=== PATIENT | female | born 1950 | race African-American/Black ===

== ENCOUNTER 2018-01-30 08:53 | Outpatient (CLI) | payer MEDICARE | END 2018-01-30 08:54 | disposition home or self-care (01) | LOC: BICMAMMO 08:53 | PROVIDERS: ATTEND Internal Medicine | DX: Z12.31 Encounter for screening mammogram for malignant neoplasm of breast (principal); Z85.3 Personal history of malignant neoplasm of breast | CPT/HCPCS: 77063; 77067 ==

== ENCOUNTER 2020-04-28 09:21 | Outpatient (CLI) | payer MEDICARE ==
--- NOTE | 2020-04-28 09:39 | RAD ---
THREE VIEWS CERVICAL SPINE: HISTORY: Pain. COMPARISON: None. FINDINGS: Predental space is normal. No prevertebral soft tissue swelling. Cervical spine vertebral body heights are maintained. No fracture. Mild loss of disc space height and osteophyte formation at C5-C6. Minimal osteophyte formation at C6-C7 and C4-C5. Nonspecific calcification along the anterior aspect of the C4-C5 disc space. On the AP projection, mild facet arthropathy. No malalignment. The open-mouth projection, lateral masses of C1 and C2 articulate probably. Odontoid process is obscu red. IMPRESSION: Multilevel degenerative changes of the cervical spine as described above. Transcribed Date/Time: 04/28/2020 10:46 AM
--- NOTE | 2020-04-28 09:42 | RAD ---
Left knee 4 views HISTORY: Left knee pain. FINDINGS: Mild joint space narrowing. Minimal osteophytosis. No acute fracture, dislocation, or fluid distention of the suprapatellar bursa. IMPRESSION : Mild osteoarthritic changes.
== END 2020-04-28 09:22 | disposition home or self-care (01) ==
LOC: RAD-FRANK 09:21
PROVIDERS: ATTEND Nurse Practitioner Family
DX: M54.2 Cervicalgia (principal); M25.562 Pain in left knee; M17.12 Unilateral primary osteoarthritis, left knee; M47.812 Spondylosis without myelopathy or radiculopathy, cervical region
CPT/HCPCS: 72040

== ENCOUNTER 2020-12-29 21:17 | Observation (INO) | payer MEDICARE ==
[~2020-12-29 21:17] MED LIST: Iopamidol-370 76% 500 ML 1 ML ONE
[2020-12-29] MEDS ORDERED: Nitroglycerin 2% Ointment 1 INCH/1 GM Packet ONE (21:35)
--- NOTE | 2020-12-29 21:40 | RAD ---
PORTABLE CHEST: 12/29/20 PROVIDED CLINICAL HISTORY: Chest pain. FINDINGS: Cardiac and mediastinal silhouette is within normal limits. No focal consolidation, pleural fluid, or pneumothorax apparent. IMPRESSION: No evidence for an acute cardiopulmonary process. POS: MACHO
[2020-12-29 21:53] LABS: #Lymphocytes 2.4 thou/uL (1.20-3.40); #Monocytes 0.8 thou/uL (0.11-0.59); #Neutrophils 7.8 thou/uL (1.40-6.50); %Basophils 0.1 % (0.0-1.0); %Eosinophils 0.2 % (0.0-10.0); %Lymphocytes 21.3 % (21.0-51.0); %Monocytes 7.4 % (0.0-10.0); Hemoglobin 12.2 g/dL (12.0-16.0); Mean Corpuscular Hemoglobin 31.8 pg (27.0-31.0); Mean Corpuscular Volume 93.7 fL (78.0-98.0); Platelet Count 331 thou/uL (130-400); RBC Distribution Width 12.9 % (11.5-14.5); Red Blood Cell (RBC) Count 3.84 mill/uL (4.20-5.40)
[2020-12-29 22:03] LABS: ALT (SGPT) 24 U/L (8-55); AST (SGOT) 24 U/L (5-34); Albumin 4.2 g/dL (3.4-4.8); Alkaline Phosphatase 82 U/L (40-110); Anion Gap 16 mmol/L (10-20); BUN (Urea Nitrogen) 22 mg/dL (9.8-20.1); Bilirubin, Total 0.6 mg/dL (0.2-1.2); Calc. Creatinine Clearance 0 mL/min (70-130); Calcium 9.2 mg/dL (7.8-10.44); Carbon Dioxide 23 mmol/L (23-31); Chloride 105 mmol/L (98-107); Globulin 3.4 g/dL (2.4-3.5); Glucose 147 mg/dL (83-110); Lipase 45 U/L (8-78); Magnesium 2.2 mg/dL (1.6-2.6); Potassium 3.6 mmol/L (3.5-5.1); Protein, Total 7.6 g/dL (5.8-8.1); Sodium 140 mmol/L (136-145)
[2020-12-29 23:07] LABS: Bilirubin Negative (Negative); Blood, Urine Negative (Negative); Clarity Clear (Clear); Glucose, Urine (Dipstick) Normal (Negative); Ketone, Urine Negative (Negative); Leukocyte Negative Leu/uL (Negative); Nitrite Negative (Negative); Protein, Urine (Dipstick) Negative (Neg-Trace); Specific Gravity, Urine 1.013 (1.002-1.036); Urobilinogen Normal mg/dL (Less than 2)
[2020-12-30] MEDS ORDERED: Acetaminophen 650 MG Suppository PR PRN (01:47)
[2020-12-30] MEDS ORDERED: Acetaminophen 325 MG TAB PO PRN (01:47)
--- NOTE | 2020-12-30 02:03 | PDOC.HHP ---
Hospitalist HPI History of Present Illness: ADMISSION DATE: 12/30/20 TIME OF ASSESSMENT: 0130 PRIMARY CARE PHYSICIAN: Satnam sanders CHIEF COMPLAINT: Chest pain HPI: This is a 70-year-old woman who presents to the emergency department with complaints of chest pain that started Saturday evening at approximately 10 PM while she was laying in bed. She states that a was in the center of her chest radiating to the left side of her chest and lasted approximately 10 to 15 minutes. She states it was aching and rates it a 6 out of 10 in severity. The pain recurred again yesterday intermittently throughout the day and became more intense around 6 PM. This prompted her to seek medical attention. She states she did take Tums which helped alleviate her discomfort but not fully. She was given nitroglycerin and aspirin by EMS which then did ease her pain completely. Reports having similar pains in the past for which she saw Dr. Johnson and underwent a stress test as well as an echo in May 2020. The patient states that that time when she would get intermittent chest pain it would last a couple of minutes. The patient does not recall the results of her stress test but states Dr. Johnson gave her the option to have a heart catheterization done or to manage her symptoms conservatively by continuing the medication she was on including a baby aspirin, antihypertensives and her statin. ROS: She denies having any recent cough or hemoptysis. Does report having difficulty with her breathing on exertion which has been going on for several months. She states she tends to get winded easily with activity such as gardening and therefore is not as active as she wishes she could be. Denies having any lightheadedness or dizziness. No nausea or vomiting. Denies experiencing any diaphoresis. No abdominal pain or cramping. No recent fevers, chills or sweats. All other review of systems are negative. ED COURSE: In the emergency department the patient had an EKG done which demonstrated sinus tachycardia with a heart rate of 107, QTc 43. Chest x-ray showed no evidence for an acute cardiopulmonary process Labs demonstrated a white cell count of 11, hemoglobin 12.2, platelets 331, neutrophils 71%. D-dimer elevated at 3.25. Troponin negative. Magnesium 2.2, lipase 45, potassium 3.6, BUN 22, creatinine 0.98, GFR 68, LFTs unremarkable and BNP 45.1. She apparently had a low-grade temperature of 99.1 in the emergency department therefore underwent a urinalysis which was unremarkable. Due to hypertensive urgency with a blood pressure of 192/81 she was given a dose of labetalol 10 mg IV. Also given Nitro-Bid 1 inch. Allergies/Adverse Reactions: Allergy/AdvReac Type Severity Reaction Status Date / Time No Known Allergies Allergy Verified 08/05/13 10:44 Home Medications: Medication Instructions Recorded Confirmed Type Atorvastatin Calcium [Lipitor] 40 mg PO DAILY 08/05/13 08/05/13 History Benazepril HCl 12.5 mg PO DAILY 08/05/13 08/05/13 History Cholecalciferol (Vitamin D3) 1,000 unit PO DAILY 08/05/13 08/05/13 History [Vitamin D3] Glucosamine/D3/Boswellia Lian 1 tablet PO DAILY 08/05/13 08/05/13 History [Osteo Bi-Flex One Per Day] Aspirin [Ecotrin Low Strength] 81 mg PO DAILY 01/11/14 01/11/14 History Ondansetron [Zofran ODT] 4 mg PO Q8HR PRN #3 tab 01/11/14 Rx Past History: PAST MEDICAL HISTORY: 1. Hypertension 2. Hyperlipidemia 3. CAD PAST SURGICAL HISTORY: None SOCIAL HISTORY: The patient is fully independent at baseline. Denies any tobacco use alcohol consumption or drug use FAMILY HISTORY: Noncontributory Hospitalist Exam Vitals: Temp 99.1, BP 157/69, HR 97, RR 20, O2 sat 90% on room air General Appearance: NAD, awake alert Eye: PERRL, anicteric sclera ENT: normocephalic atraumatic, no oropharyngeal lesions Neck: supple, no lymphadenopathy Heart: RRR, normal peripheral pulses Respiratory: CTAB, no wheezes, no rales, no ronchi, normal chest expansion Gastrointestinal: soft, non-tender, non-distended, normal bowel sounds Extremities: no edema Skin: normal turgor, no lesions, no rashes Neurological: cranial nerve grossly intact, normal sensation to touch Musculoskeletal: normal tone, normal strength, no muscle wasting Psychiatric: normal affect, normal behavior, A&O x 3 Hospitalist Results Result Diagrams: 12/29/20 21:30 12/29/20 21:30 Lab results: Laboratory Last Values WBC 11.0 thou/uL (4.8-10.8) H 12/29/20 21: RBC 3.84 mill/uL (4.20-5.40) L 12/29/20: Hgb 12.2 g/dL (12.0-16.0) 12/29/20: Hct 36.0 % (36.0-47.0) 12/29/20: MCV 93.7 fL (78.0-98.0) 12/29/20: MCH 31.8 pg (27.0-31.0) H 12/29/20: MCHC 34.0 g/dL (32.0-36.0) 12/29/20: RDW 12.9 % (11.5-14.5) 12/29/20: Plt Count 331 thou/uL (130-400) 12/29/20: MPV 7.0 fL (7.4-10.4) L 12/29/20: Neutrophils % 71.0 % (42.0-75.0) 12/29/20: Lymphocytes % 21.3 % (21.0-51.0) 12/29/20: Monocytes % 7.4 % (0.0-10.0) 12/29/20: Eosinophils % 0.2 % (0.0-10.0) 12/29/20: Basophils % 0.1 % (0.0-1.0) 12/29/20: Neutrophils # 7.8 thou/uL (1.40-6.50) H 12/29/20: Lymphocytes # 2.4 thou/uL (1.20-3.40) 12/29/20: Monocytes # 0.8 thou/uL (0.11-0.59) H 12/29/20: Eosinophils # 0.0 thou/uL (0.0-0.7) 12/29/20: Basophils # 0.0 thou/uL (0.0-0.2) 12/29/20: D-Dimer 3.25 *mcg/mL (0.27-0.43) H 02/11/21 21:30 Sodium 140 mmol/L (136-145) 12/29/20 21:30 Potassium 3.6 mmol/L (3.5-5.1) 12/29/20 21: Chloride 105 mmol/L (98-107) 12/29/20 21: Carbon Dioxide 23 mmol/L (23-31) 12/29/20 21:30 Anion Gap 16 mmol/L (10-20) 12/29/20:30 BUN 22 mg/dL (9.8-20.1) H 12/29/20 21:30 Creatinine 0.98 mg/dL (0.6-1.1) 12/29/20 21:30 Estimated GFR (MDRD) 68 12/29/20 21: Glucose 147 mg/dL (83-110) H 12/29/20: Calcium 9.2 mg/dL (7.8-10.44) 12/29/20: Magnesium 2.2 mg/dL (1.6-2.6) 12/29/20: Total Bilirubin 0.6 mg/dL (0.2-1.2) 12/29/20: AST 24 U/L (5-34) 12/29/20: ALT 24 U/L (8-55) 12/29/20: Alkaline Phosphatase 82 U/L (40-110) 12/29/20: Troponin I 0.014 ng/mL (< 0.028) 12/29/20: B-Natriuretic Peptide 45.1 pg/mL (0-100) 12/29/20: Serum Total Protein 7.6 g/dL (5.8-8.1) 12/29/20: Albumin 4.2 g/dL (3.4-4.8) 12/29/20: Globulin 3.4 g/dL (2.4-3.5) 12/29/20: Albumin/Globulin Ratio 1.2 g/dL (1.2-2.2) 12/29/20: Lipase 45 U/L (8-78) 12/29/20: Urine Color Colorless (Yellow) 12/29/20: Urine Clarity Clear (Clear) 02/11/21 22:55 Urine pH 7.0 (5.0-9.0) 12/29/20 22:55 Ur Specific [place] 1.013 (1.002-1.036) 12/29/20 22:55 Urine Protein Negative mg/dL (Neg-Trace) 12/29/20 22:55 Urine Glucose (UA) Normal mg/dL (Negative) 12/29/20 22:55 Urine Ketones Negative mg/dL (Negative) 12/29/20 22:55 Urine Blood Negative (Negative) 12/29/20 22:55 Urine Nitrite Negative (Negative) 12/29/20 22:55 Urine Bilirubin Negative (Negative) 12/29/20 22:55 Urine Urobilinogen Normal mg/dL (Less than 2) 12/29/20 22:55 Ur Leukocyte Esterase Negative Aryan/uL (Negative) 12/29/20 22:55 CT scan - chest Status: pending Hospitalist H&P A/P (1) Chest pain Code(s): R07.9 - CHEST PAIN, UNSPECIFIED Status: Acute (2) Shortness of breath on exertion Code(s): R06.02 - SHORTNESS OF BREATH Status: Acute (3) Hypertension Code(s): I10 - ESSENTIAL (PRIMARY) HYPERTENSION Status: Chronic (4) Hyperlipidemia Code(s): E78.5 - HYPERLIPIDEMIA, UNSPECIFIED Status: Chronic Plan: Cardiac monitoring Trend troponins Monitor BP D-Dimer elevated, CTA done, awaiting results Recent stress test and Echo by Dr. Johnson <1 yr ago Cardiology consult placed Lipid panel with AM labs Continue statin and Aspirin GI Prophylaxis with Famotidine CODE STATUS FULL Resume home medications as appropriate once verified COVID testing-admission screening Case discussed with Dr. Guerrero who agrees with plan as above
[2020-12-30 02:05] LABS: Troponin I 0.025 ng/mL (< 0.028)
[2020-12-30 04:09] LABS: #Lymphocytes 2.2 thou/uL (1.20-3.40); #Monocytes 0.9 thou/uL (0.11-0.59); #Neutrophils 5.1 thou/uL (1.40-6.50); %Basophils 0.2 % (0.0-1.0); %Eosinophils 0.2 % (0.0-10.0); %Lymphocytes 26.6 % (21.0-51.0); Hemoglobin 11.5 g/dL (12.0-16.0); Mean Corpuscular HGB CONC 33.5 g/dL (32.0-36.0); Mean Corpuscular Hemoglobin 31.3 pg (27.0-31.0); Mean Corpuscular Volume 93.4 fL (78.0-98.0); Mean Platelet Volume 6.9 fL (7.4-10.4); Platelet Count 318 thou/uL (130-400); Red Blood Cell (RBC) Count 3.69 mill/uL (4.20-5.40); White Blood Cell (WBC) Count 8.2 thou/uL (4.8-10.8)
[2020-12-30 04:27] LABS: Anion Gap 13 mmol/L (10-20); BUN (Urea Nitrogen) 19 mg/dL (9.8-20.1); Calc. Creatinine Clearance 0 mL/min (70-130); Calcium 9.3 mg/dL (7.8-10.44); Carbon Dioxide 24 mmol/L (23-31); Cardiac Risk 2.5 (Less than 4.5); Chloride 109 mmol/L (98-107); Cholesterol 143 mg/dl (< 200 Desired); Glucose 118 mg/dL (83-110); HDL Cholesterol 58 mg/dL (>60 Neg Risk); LDL Cholesterol, Calculated 79 mg/dL; Sodium 142 mmol/L (136-145); Triglycerides 30 mg/dL (Less than 150)
[2020-12-30 04:32] LABS: Troponin I 0.034 ng/mL (< 0.028)
--- NOTE | 2020-12-30 07:45 | CT ---
PRELIMINARY REPORT/[facility]/EMERGENCY AFTER HOURS PROCEDURE EXAM: CTA Chest with Intravenous Contrast CLINICAL HISTORY: 70-year-old female presents the emergency department for complaint of chest pain. Patient stated it s tarted last night spontaneously and was mild. She stated that this resolved with time. She states that all this morning she was feeling well without any complaints until tonight around 6 PM the chest pain restarted. She described it as substernal and radiating to her left side and down her left arm TECHNIQUE: Axial CTA images of the chest with intravenous contrast. Three-dimensional MIP/volume rendered reform ations were performed. CONTRAST: With; ISOVUE COMPARISON: None provided. FINDINGS: PULMONARY ARTERIES There is no intraluminal filling defect suspicious for PE. AORTA No thoracic aortic aneurysm or dissection. LUNGS The lungs are clear. No pulmonary mass. No focal airspace consolidation. PLEURAL SPACES No pleural effusion. No pneumothorax. HEART AND MEDIASTINUM No cardiomegaly. No significant pericardial effusion. BONES No focal osseous abnormality or acute fracture. UPPER ABDOMEN A few nonspecific hepatic parenchymal hypodensities, the largest in the anterolateral periphery of th e posterior segment of the right lobe of the liver measuring 8 mm. Given the patient's left mastectomy, hepatic metastatic disease is a consideration. MISCELLANEOUS: The patient is status post left mastectomy. IMPRESSION: 1. No intraluminal filling defect suspicious for PE. 2. A few nonspecific hepatic parenchymal hypodensities, the largest in the anterolateral periphery of the posterior segment of the right lobe of the liver measuring 8 mm. Given the patient's left mastectomy, hepatic metastatic disease is a consideration. ELECTRONICALLY SIGNED BY: Jermaine Pedroza MD Dec 30, 2020 12:52:41 AM [employer] This report is intended for review by the ordering physician only, in accordance of law. If you recei ve this report in error, please call [facility] at [phone]. FINAL REPORT CTA Angio Chest W WO Con History: Chest pain Comparison: Chest radiograph same day Findings: CT angiogram chest performed after the intravenous administration of contrast. 3-D renderin g provided. Impression: Findings and impression are concordant with the preliminary report. Hepatic hypodensities are likely cysts. Follow up abdominal ultrasound can be performed. Transcribed Date/Time: 12/30/2020 8:04 AM
[2020-12-30] MEDS ORDERED: Famotidine 20 MG TAB PO SCH (09:00)
[2020-12-30] MEDS ORDERED: Aspirin 325 mg Enteric Coated Tablet PO SCH (09:00)
[2020-12-30] MEDS ORDERED: Calcium Carbonate 500 MG ChewTAB PO PRN (09:14)
[2020-12-30] MEDS ORDERED: Ondansetron ODT 4 MG TAB PO PRN (09:14)
[2020-12-30] MEDS ORDERED: HYDROcodone/Acetaminophen 5/325 mg Tablet PO PRN (09:14)
[2020-12-30] MEDS ORDERED: Bisacodyl 5 MG TAB PO PRN (09:14)
[2020-12-30] MEDS ORDERED: Cepastat Lozenges 1 LOZ PO PRN (09:14)
[2020-12-30] MEDS ORDERED: Loratadine 10 MG TAB PO PRN (09:14)
[2020-12-30] MEDS ORDERED: Sodium Chloride 0.65% Nasal 44 ML BOT EA NARE PRN (09:14)
[2020-12-30] MEDS ORDERED: hydrALAZINE 20 MG/ML VIAL SLOW IVP PRN (09:14)
[2020-12-30] MEDS ORDERED: Ondansetron PF 4 MG/2 ML Vial IVP PRN (09:14)
[2020-12-30] MEDS ORDERED: GUAIFENESIN SF SOLN 200 MG/10 ML UDCUP PO PRN (09:14)
[2020-12-30] MEDS ORDERED: Zolpidem Tartrate 5 MG TAB PO PRN (09:14)
[2020-12-30] MEDS ORDERED: Senokot S 8.6-50 MG TAB PO PRN (09:14)
[2020-12-30] MEDS ORDERED: Loperamide HCl 2 MG CAP PO PRN (09:14)
[2020-12-30] MEDS ORDERED: Lisinopril 10 MG TAB PO SCH (09:30)
[2020-12-30 12:50] LABS: SARS-CoV-2 PCR by NAA Not Detected (NotDetected)
--- NOTE | 2020-12-30 12:56 | PDOC.HOSPP ---
- Subjective Encounter Date: 12/30/20 Encounter Time: 11:00 Subjective: Patient seen and examined. No new complaints. No overnight events - Objective Vital Signs & Weight: Vital Signs (12 hours) Temp Pulse Resp BP BP Pulse Ox 12/30/20 09:40 185/75 H 12/30/20 09:14 98.7 F 94 16 184/75 H 98 12/30/20 05:15 98.2 F 98 18 172/72 H 99 12/30/20 01:47 98.4 F 88 14 168/71 H 99 Weight Weight 5.397 oz I&O: 12/29/20 12/30/20 12/31/20 06:59 06:59 06:59 Intake Total 0 Balance 0 Result Diagrams: 12/30/20 03:52 12/30/20 03:52 Radiology Reviewed by me: Yes EKG Reviewed by me: Yes Hospitalist ROS - Review of Systems ENT: denies: ear pain, ear discharge, nose pain, nose discharge, nose congestion, mouth pain, mouth swelling, throat pain, throat swelling, other Respiratory: denies: cough, dry, shortness of breath, hemoptysis, SOB with excertion, pleuritic pain, sputum, wheezing, other Cardiovascular: denies: chest pain, palpitations, orthopnea, paroxysmal noc. dyspnea, edema, light headedness, other Gastrointestinal: denies: nausea, vomiting, abdominal pain, diarrhea, constipation, melena, hematochezia, other Genitourinary: denies: dysuria, frequency, incontinence, hematuria, retention, other Musculoskeletal: denies: neck pain, shoulder pain, arm pain, back pain, hand pain, leg pain, foot pain, other - Medication Medications: Active Medications Generic Name Dose Route Start Last Admin Trade Name Freq PRN Reason Stop Dose Admin Aspirin 325 mg 12/30/20 09:00 12/30/20 09:40 Aspirin 325 Mg Enteric Coated Tablet PO 325 mg DAILY [facility] Administration Famotidine 20 mg 12/30/20 09:00 12/30/20 09:40 Famotidine 20 Mg Tab PO 20 mg BID [facility] Administration Hospitalist Exam Vitals: Vital Signs (12 hours) Temp Pulse Resp BP BP Pulse Ox 12/30/20 09:40 185/75 H 12/30/20 09:14 98.7 F 94 16 184/75 H 98 12/30/20 05:15 98.2 F 98 18 172/72 H 99 12/30/20 01:47 98.4 F 88 14 168/71 H 99 Weight Weight 5.397 oz General Appearance: NAD, awake alert Eye: PERRL, anicteric sclera ENT: normocephalic atraumatic, no oropharyngeal lesions Neck: supple, symmetric, no JVD, no thyromegaly Heart: RRR, no murmur, no gallops, no rubs Respiratory: CTAB, no wheezes, no rales, no ronchi Gastrointestinal: soft, non-tender, non-distended, normal bowel sounds Extremities: no cyanosis, no clubbing, no edema Skin: normal turgor, no lesions Neurological: no focal deficits Musculoskeletal: normal tone, normal strength Psychiatric: normal affect, normal behavior, A&O x 3 Hosp A/P (1) Chest pain Code(s): R07.9 - CHEST PAIN, UNSPECIFIED Status: Acute (2) Shortness of breath on exertion Code(s): R06.02 - SHORTNESS OF BREATH Status: Acute (3) Hyperlipidemia Code(s): E78.5 - HYPERLIPIDEMIA, UNSPECIFIED Status: Resolved (4) Hypertension Code(s): I10 - ESSENTIAL (PRIMARY) HYPERTENSION Status: Chronic - Plan old records reviewed/req Patient already had recently stress test and echocardiography as an outpatient basis, Cardiology has been consulted Further investigation like cardiac catheterization will defer to cardiology Patient is n.p.o. I have started lisinopril 10 mg p.o. daily for blood pressure.
--- NOTE | 2020-12-30 12:58 | PDOC.DS.DS ---
Provider Date of Admission: 12/30/20 00:54 Admitting Provider: Gabriel Guerrero MD Consultations: Cardiology Primary Care Physician: Kaden Navarrete MD Course Hospital Course: 70-year-old woman who presents to the emergency department with complaints of chest pain that started Saturday evening at approximately 10 PM while she was laying in bed. She states that a was in the center of her chest radiating to the left side of her chest and lasted approximately 10 to 15 minutes. She states it was aching and rates it a 6 out of 10 in severity. The pain recurred again yesterday intermittently throughout the day and became more intense around 6 PM. This prompted her to seek medical attention. She states she did take Tums which helped alleviate her discomfort but not fully. She was given nitroglycerin and aspirin by EMS which then did ease her pain completely. Reports having similar pains in the past for which she saw Dr. Johnson and underwent a stress test as well as an echo in May 2020. The patient states that that time when she would get intermittent chest pain it would last a couple of minutes. The patient does not recall the results of her stress test but states Dr. Johnson gave her the option to have a heart catheterization done or to manage her symptoms conservatively by continuing the medication she was on including a baby aspirin, antihypertensives and her statin. ROS: She denies having any recent cough or hemoptysis. Does report having difficulty with her breathing on exertion which has been going on for several months. She states she tends to get winded easily with activity such as gardening and therefore is not as active as she wishes she could be. Denies having any lightheadedness or dizziness. No nausea or vomiting. Denies experiencing any diaphoresis. No abdominal pain or cramping. No recent fevers, chills or sweats. All other review of systems are negative. ED COURSE: In the emergency department the patient had an EKG done which demonstrated sinus tachycardia with a heart rate of 107, QTc 43. Chest x-ray showed no evidence for an acute cardiopulmonary process Labs demonstrated a white cell count of 11, hemoglobin 12.2, platelets 331, neutrophils 71%. D-dimer elevated at 3.25. Troponin negative. Magnesium 2.2, lipase 45, potassium 3.6, BUN 22, creatinine 0.98, GFR 68, LFTs unremarkable and BNP 45.1. She apparently had a low-grade temperature of 99.1 in the emergency department therefore underwent a urinalysis which was unremarkable. Due to hypertensive urgency with a blood pressure of 192/81 she was given a dose of labetalol 10 mg IV. Also given Nitro-Bid 1 inch. Patient had elevated D-dimer that is why CT angio was done which was negative for pulmonary embolism. Patient had already outpatient basis stress test and echocardiography so we consulted cardiology, cardiology to decide about stress test, we started lisinopril for hypertension. Resuscitation Status: 12/30/20 01:47 Resuscitation Status Routine Co-Sign Provider: Resuscitation Status: FULL: Full Resuscitation Lab Results: 12/30/20 03:52 12/30/20 03:52 Abnormal Lab Results - Last 48 hrs 12/29/20 21:30: BUN 22 H 12/29/20 21:30: WBC 11.0 H, RBC 3.84 L, MCH 31.8 H, MPV 7.0 L, Neutrophils # 7.8 H, Monocytes # 0.8 H 12/29/20 21:30: D-Dimer 3.25 H 12/30/20 03:52: Troponin I 0.034 H 12/30/20 03:52: Chloride 109 H 12/30/20 03:52: RBC 3.69 L, Hgb 11.5 L, Hct 34.5 L, MCH 31.3 H, MPV 6.9 L, Monocytes % 11.0 H, Monocytes # 0.9 H Vitals: Vital Signs (12 hours) Temp Pulse Resp BP BP Pulse Ox 12/30/20 09:40 185/75 H 12/30/20 09:14 98.7 F 94 16 184/75 H 98 12/30/20 05:15 98.2 F 98 18 172/72 H 99 12/30/20 01:47 98.4 F 88 14 168/71 H 99 Weight Weight 5.397 oz Physical Exam: The patient was seen and examined on the day of discharge. General Appearance: NAD, awake alert Eye: PERRL, anicteric sclera ENT: normocephalic atraumatic, no oropharyngeal lesions Neck: supple, symmetric, no JVD, no thyromegaly Respiratory: CTAB, no wheezes, no rales, no ronchi Cardiovascular: RRR, no murmur, no gallops, no rubs Gastrointestinal: soft, non-tender, non-distended, normal bowel sounds Extremities: no cyanosis, no clubbing, no edema Skin: normal turgor, no lesions Neurological: no focal deficits Musculoskeletal: normal tone, normal strength, no muscle wasting PSYCH: normal affect, normal behavior, A&O x 3 Problem (1) Chest pain Code(s): R07.9 - CHEST PAIN, UNSPECIFIED Status: Acute (2) Shortness of breath on exertion Code(s): R06.02 - SHORTNESS OF BREATH Status: Acute (3) Hyperlipidemia Code(s): E78.5 - HYPERLIPIDEMIA, UNSPECIFIED Status: Resolved (4) Hypertension Code(s): I10 - ESSENTIAL (PRIMARY) HYPERTENSION Status: Chronic Plan Home Medications: Medication Instructions Recorded Confirmed Type Atorvastatin Calcium [Lipitor] 40 mg PO DAILY 08/05/13 08/05/13 History Benazepril HCl 12.5 mg PO DAILY 08/05/13 08/05/13 History Cholecalciferol (Vitamin D3) 1,000 unit PO DAILY 08/05/13 08/05/13 History [Vitamin D3] Glucosamine/D3/Boswellia Lian 1 tablet PO DAILY 08/05/13 08/05/13 History [Osteo Bi-Flex One Per Day] Aspirin [Ecotrin Low Strength] 81 mg PO DAILY 01/11/14 01/11/14 History Ondansetron [Zofran ODT] 4 mg PO Q8HR PRN #3 tab 01/11/14 Rx Allergies: No Known Allergies Allergy (Verified 12/30/20 04:13) Activity:: Activity as Tolerated Nourishment:: Heart Healthy Diet Therapies:: Not Applicable Equipment/Supplies:: Not Applicable IV Therapy:: Not Applicable Referrals: Kaden Navarrete MD [Primary Care Provider] - Disposition: HOME Quality CORE MEASURES:: N/A
--- NOTE | 2020-12-30 13:34 | CON ---
DATE OF CONSULTATION: 12/30/2020 INDICATION FOR CONSULTATION: This is a 70-year-old female with chest pain. 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 HISTORY OF PRESENT ILLNESS: This very pleasant 70-year-old female, was seen by Dr. Johnson back in July and underwent stress testing as well as an echocardiogram. Ejection fraction was normal. She did have evidence of possible inferior and apical reversible ischemia. She was given the option of proceeding with cardiac catheterization versus medical management and medical management was opted. She has then noticed in the last several days starting on Saturday evening when she was lying down, she had some chest pain which was on the right side of her chest radiated to the left side and then down the left arm. The pain resolved and she was sitting up and no discomfort. She was okay on , but then again night, she had more chest discomfort when she was lying down and she also felt like her heart was racing a little bit. She presented to the emergency room. First two sets of enzymes are negative. The third set is still indeterminate, but it still is like 0.034 I believe. Otherwise, her laboratory data unremarkable. Her LDL is 79 and remaining of her laboratory data is relatively unremarkable for any acute events. At this time, she is pain free. She is sitting in the room and she is very pleasant. Answering all questions. PAST MEDICAL HISTORY: Significant for some hypertension as well as dyslipidemia. SOCIAL HISTORY: There is no history of alcohol or tobacco abuse. She lives with her . She had 4 children, one in automobile accident, the other three have no history of coronary artery disease. FAMILY HISTORY: Noncontributory. ALLERGIES: NONE. MEDICATIONS: Prior to admission included, 1. Benazepril HCL 12.5 mg a day. 2. Lipitor 40 mg a day. 3. Vitamin D3. 4. Osteo Bi-Flex once a day. 5. Aspirin 81 mg a day. 6. Zofran as needed. REVIEW OF SYSTEMS: A 12-point review of systems unremarkable except what is noted in the history of present illness. PHYSICAL EXAMINATION: GENERAL: Reveals a very pleasant, well-developed, well-nourished female, in no acute distress. VITAL SIGNS: Blood pressure is elevated at 185/75, heart rate is 94 and regular, respiratory rate 16, O2 saturation 98%. She is afebrile. HEENT: Shows the head to be normocephalic and atraumatic. Carotid pulses are present. There were no bruits. There is no JVD. The thyroid did not appear to be enlarged. CHEST: Clear to auscultation without rales, rhonchi, or wheezing. CARDIOVASCULAR: Reveals a regular rate and rhythm. She has normal S1, S2. I cannot hear an S3 nor an S4. No other any significant murmurs, heaves, thrills, bruits, or rubs noted. ABDOMEN: Soft and nontender. Positive bowel sounds are present. EXTREMITIES: Show no clubbing, cyanosis, or edema. Pedal pulses are present. NEUROLOGIC: She is fully intact. She has no gross focal motor deficits. SKIN: Warm and dry. PSYCHOSOCIAL: Appears to be normal. LABORATORY DATA: Shows a WBC of 11, hemoglobin 12.2. She does have a slight elevation of the D-dimer at 3.25, which still indeterminate. Potassium is 3.6, creatinine 0.98. Her BNP was 45. EKG is unremarkable. She has a sinus rhythm with no acute ST-segment changes. IMPRESSION: 1. A 70-year-old female with repeated episodes of chest pain despite a negative stress test in May of 2020, as well as an echo, which showed a normal left ventricular systolic function. Actually, the stress test did show some abnormalities, but she was opted to continue medical management. At this time, we will repeat the stress test to determine whether or not there are any changes. Her pain does appear to be somewhat atypical or more GI in nature since she only has the pain when she is lying down. We will repeat the stress test. If she has any significant other changes, I would suggest cardiac catheterization. Otherwise if everything remains stable, she could be discharged home later today if the blood pressure is under control. 2. Hypertension. Her blood pressure is obviously not under control at this time. She was given her medications, however, in the hope of the blood pressure will improve. If not, we will need to readjust her blood pressure medications. 3. Dyslipidemia. Her cholesterol is under good control. I would continue her statins at this time. Job ID: [id number] MTDD
[2020-12-30] MEDS ORDERED: cloNIDine 0.1 MG TAB PO SCH (14:30)
--- NOTE | 2020-12-30 16:42 | NM ---
NM Cardiac Stress W EF WF History: Hypertension and dyslipidemia Comparison: CT angiogram chest same day Findings: Exam was performed using stress only. The patient was administered 27.4 mCi technetium 99m sestamibi intravenously. Normal left ventricular uptake of radiotracer. Normal wall motion. Calculated ejection fraction is 83 %. No abnormal decreased uptake to suggest scar or ischemia. Impression: Normal single day nuclear medicine stress test.
[2020-12-30 17:27] VITALS: BP 152/59; TEMP 97.6
[2020-12-30] MEDS ORDERED: Regadenoson 0.4 MG/5 ML SYRINGE ONE (17:38)
[2020-12-30] MEDS ORDERED: Atorvastatin Calcium 40 MG TAB PO SCH (21:00)
[2020-12-31] MEDS ORDERED: Lisinopril 10 MG TAB PO SCH (09:00)
[2020-12-31] MEDS ORDERED: BENAZEPRIL HCL PO SCH (09:00)
[2020-12-31] MEDS ORDERED: Cholecalciferol 1,000 UNITS (25 MCG) TAB PO SCH (09:00)
--- NOTE | 2021-01-04 15:21 | EKG ---
Test Reason : C/P Blood Pressure : / mmHG Vent. Rate : 109 BPM Atrial Rate : 109 BPM P-R Int : 164 ms QRS Dur : 088 ms QT Int : 374 ms P-R-T Axes : 054 032 043 degrees QTc Int : 503 ms Sinus tachycardia Nonspecific ST abnormality Abnormal ECG When compared with ECG of 29-DEC-2020 21:29, (Unconfirmed) Premature ventricular complexes are no longer Present Confirmed by KEEGAN NORMAN ([id number]) on 01/04/2021 3:21:14 PM Referred By: MATEO Confirmed By:KEEGAN NORMAN
--- NOTE | 2021-01-07 15:51 | EKG ---
Test Reason : Blood Pressure : / mmHG Vent. Rate : 107 BPM Atrial Rate : 107 BPM P-R Int : 170 ms QRS Dur : 090 ms QT Int : 362 ms P-R-T Axes : 051 -01 034 degrees QTc Int : 483 ms Sinus tachycardia with occasional Premature ventricular complexes Possible Left atrial enlargement Borderline ECG Confirmed by RAMAN REBOLLAR ([id number]), society editor PRASANNA JUDGE ([id number]) on 01/07/2021 3:51:22 PM Referred By: Confirmed By:RAMAN REBOLLAR
== END 2020-12-30 18:18 | disposition home or self-care (01) ==
LOC: ERS 21:17 → 3SE 12-30 00:54
PROVIDERS: ADMIT Internal Medicine; ATTEND Internal Medicine
DX: R07.89 Other chest pain (principal); R06.02 Shortness of breath; I16.0 Hypertensive urgency; I10 Essential (primary) hypertension; I25.10 Atherosclerotic heart disease of native coronary artery without angina pectoris; E78.5 Hyperlipidemia, unspecified; Z79.82 Long term (current) use of aspirin; Z79.899 Other long term (current) drug therapy; Z20.822 Contact with and (suspected) exposure to COVID-19
CPT/HCPCS: 71045; 71275; 78452; 80048; 80053; 80061; 81003; 83690; 83735; 83880; 84484 ×3; 85025 ×2; 85379; 93005 ×2; 93017; 94760; 96374; 99285; A9500; G0378 ×2; U0003; U0005; 36415; 87635; 93010; J0360; J2785; Q9967

== ENCOUNTER 2021-01-12 10:24 | Outpatient (CLI) | payer MEDICARE ==
--- NOTE | 2021-01-12 11:06 | MMO ---
Bilateral MAMMO Bilat Screen [facility]. CLINICAL HISTORY: Patient is 70 years old and is seen for screening. The patient has no family history of breast cancer. 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 - benign. VIEWS: The views performed were: right craniocaudal with tomosynthesis and right mediolateral oblique with tomosynthesis. FILMS COMPARED: The present examination has been compared to prior imaging studies performed at [facility] on 01/30/2018, and at [facility] on 05/25/2014, 06/13/2015 and 08/29/2016. This study has been interpreted with the assistance of computer-aided detection. MAMMOGRAM FINDINGS: There are scattered fibroglandular densities. Nodularity is stable. A biopsy clip is seen in the right breast. There are no suspicious masses, suspicious calcifications, or new areas of architectural distortion. IMPRESSION: THERE IS NO MAMMOGRAPHIC EVIDENCE OF MALIGNANCY. A ROUTINE FOLLOW-UP MAMMOGRAM IN 1 YEAR IS RECOMMENDED. THE RESULTS OF THIS EXAM WERE SENT TO THE PATIENT. ACR BI-RADS Category 2 - Benign finding MAMMOGRAPHY NOTE: 1. A negative mammogram report should not delay a biopsy if a dominant of clinically suspicious mass is present. 2. Approximately 10% to 15% of breast cancers are not detected by mammography. 3. Adenosis and dense breasts may obscure an underlying neoplasm. Reported by: ISIS SMITH MD Electonically Signed: [id number]
== END 2021-01-12 10:25 | disposition home or self-care (01) ==
LOC: BICMAMMO 10:24
PROVIDERS: ATTEND Nurse Practitioner Family
DX: Z12.31 Encounter for screening mammogram for malignant neoplasm of breast (principal); Z90.12 Acquired absence of left breast and nipple; Z85.3 Personal history of malignant neoplasm of breast
CPT/HCPCS: 77063; 77067

== ENCOUNTER 2021-04-29 05:40 | Inpatient (IN) | payer MEDICARE ==
[2021-04-29 06:21] LABS: #Lymphocytes 1.8 thou/uL (1.20-3.40); #Monocytes 0.4 thou/uL (0.11-0.59); #Neutrophils 5.4 thou/uL (1.40-6.50); %Eosinophils 0.4 % (0.0-10.0); %Lymphocytes 23.3 % (21.0-51.0); %Monocytes 5.4 % (0.0-10.0); %Neutrophils 70.9 % (42.0-75.0); Hemoglobin 11.5 g/dL (12.0-16.0); Mean Corpuscular HGB CONC 33.3 g/dL (32.0-36.0); Mean Corpuscular Hemoglobin 31.3 pg (27.0-31.0); Mean Corpuscular Volume 94.1 fL (78.0-98.0); Mean Platelet Volume 6.9 fL (7.4-10.4); Platelet Count 321 thou/uL (130-400); RBC Distribution Width 12.9 % (11.5-14.5); Red Blood Cell (RBC) Count 3.68 mill/uL (4.20-5.40); White Blood Cell (WBC) Count 7.6 thou/uL (4.8-10.8)
[2021-04-29 06:35] LABS: INR-International Normal Ratio 1.1; PTT 31.3 sec (22.9-36.1); Prothrombin Time 14.7 sec (12.0-14.7)
[2021-04-29 06:39] LABS: ALT (SGPT) 12 U/L (8-55); AST (SGOT) 15 U/L (5-34); Albumin 4.1 g/dL (3.4-4.8); Alkaline Phosphatase 56 U/L (40-110); Anion Gap 15 mmol/L (10-20); BUN (Urea Nitrogen) 19 mg/dL (9.8-20.1); Bilirubin, Total 0.9 mg/dL (0.2-1.2); Calc. Creatinine Clearance 0 mL/min (70-130); Calcium 9.4 mg/dL (7.8-10.44); Carbon Dioxide 24 mmol/L (23-31); Chloride 106 mmol/L (98-107); Globulin 3.4 g/dL (2.4-3.5); Glucose 124 mg/dL (83-110); Potassium 3.6 mmol/L (3.5-5.1); Protein, Total 7.5 g/dL (5.8-8.1); Sodium 141 mmol/L (136-145)
[2021-04-29] MEDS ORDERED: Ondansetron PF 4 MG/2 ML Vial IVP PRN (07:41)
[2021-04-29] MEDS ORDERED: hydrALAZINE 20 MG/ML VIAL SLOW IVP PRN (07:54)
[2021-04-29] MEDS ORDERED: Sodium Chloride 0.9% (PF) 10 ML VIAL FS PRN (08:00)
[2021-04-29 08:24] LABS: #Lymphocytes 1.5 thou/uL (1.20-3.40); #Monocytes 0.5 thou/uL (0.11-0.59); #Neutrophils 6.5 thou/uL (1.40-6.50); %Basophils 0.5 % (0.0-1.0); %Eosinophils 0.1 % (0.0-10.0); %Lymphocytes 17.5 % (21.0-51.0); %Monocytes 5.2 % (0.0-10.0); %Neutrophils 76.7 % (42.0-75.0); Hemoglobin 11.3 g/dL (12.0-16.0); Mean Corpuscular HGB CONC 32.9 g/dL (32.0-36.0); Mean Corpuscular Hemoglobin 31.6 pg (27.0-31.0); Mean Platelet Volume 6.9 fL (7.4-10.4); Platelet Count 337 thou/uL (130-400); RBC Distribution Width 12.6 % (11.5-14.5); Red Blood Cell (RBC) Count 3.57 mill/uL (4.20-5.40); White Blood Cell (WBC) Count 8.5 thou/uL (4.8-10.8)
[2021-04-29 11:00] VITALS: BMI 25.4
[2021-04-29] MEDS: Sodium Chloride 0.9% 1,000 ML IV SCH ×3 (11:06→18:25)
[2021-04-29] MEDS: Pantoprazole 40 MG VIAL IVP SCH ×2 (11:11→20:22)
[2021-04-29 13:33] LABS: #Lymphocytes 1.9 thou/uL (1.20-3.40); #Monocytes 0.5 thou/uL (0.11-0.59); #Neutrophils 4.9 thou/uL (1.40-6.50); %Basophils 0.2 % (0.0-1.0); %Eosinophils 0.3 % (0.0-10.0); %Lymphocytes 26.2 % (21.0-51.0); %Monocytes 7.3 % (0.0-10.0); %Neutrophils 66.1 % (42.0-75.0); Hemoglobin 10.2 g/dL (12.0-16.0); Mean Corpuscular HGB CONC 34.9 g/dL (32.0-36.0); Mean Corpuscular Hemoglobin 32.7 pg (27.0-31.0); Mean Corpuscular Volume 93.6 fL (78.0-98.0); Mean Platelet Volume 6.8 fL (7.4-10.4); Platelet Count 290 thou/uL (130-400); RBC Distribution Width 12.8 % (11.5-14.5); Red Blood Cell (RBC) Count 3.12 mill/uL (4.20-5.40); White Blood Cell (WBC) Count 7.4 thou/uL (4.8-10.8)
[2021-04-29] MEDS ORDERED: GoLYTELY 4,000 ml Bottle PO SCH (17:00)
[2021-04-29 20:44] LABS: #Eosinphils 0.1 thou/uL (0.0-0.7); #Lymphocytes 2.7 thou/uL (1.20-3.40); #Monocytes 0.6 thou/uL (0.11-0.59); #Neutrophils 6.3 thou/uL (1.40-6.50); %Basophils 0.5 % (0.0-1.0); %Eosinophils 0.6 % (0.0-10.0); %Lymphocytes 27.6 % (21.0-51.0); %Monocytes 6.5 % (0.0-10.0); %Neutrophils 64.9 % (42.0-75.0); Mean Corpuscular HGB CONC 34.2 g/dL (32.0-36.0); Mean Corpuscular Volume 93.6 fL (78.0-98.0); Mean Platelet Volume 6.7 fL (7.4-10.4); Platelet Count 295 thou/uL (130-400); RBC Distribution Width 12.7 % (11.5-14.5); Red Blood Cell (RBC) Count 3.12 mill/uL (4.20-5.40); White Blood Cell (WBC) Count 9.8 thou/uL (4.8-10.8)
[2021-04-30 04:48] LABS: #Lymphocytes 2.2 thou/uL (1.20-3.40); #Monocytes 0.5 thou/uL (0.11-0.59); #Neutrophils 6.4 thou/uL (1.40-6.50); %Basophils 0.2 % (0.0-1.0); %Eosinophils 0.4 % (0.0-10.0); %Lymphocytes 23.7 % (21.0-51.0); %Monocytes 5.8 % (0.0-10.0); %Neutrophils 69.9 % (42.0-75.0); Hemoglobin 8.7 g/dL (12.0-16.0); Mean Corpuscular HGB CONC 34.6 g/dL (32.0-36.0); Mean Corpuscular Hemoglobin 32.5 pg (27.0-31.0); Mean Corpuscular Volume 93.8 fL (78.0-98.0); Mean Platelet Volume 7.1 fL (7.4-10.4); Platelet Count 259 thou/uL (130-400); RBC Distribution Width 12.7 % (11.5-14.5); Red Blood Cell (RBC) Count 2.68 mill/uL (4.20-5.40); White Blood Cell (WBC) Count 9.2 thou/uL (4.8-10.8)
[2021-04-30] MEDS: Sodium Chloride 0.9% 1,000 ML IV SCH (05:31)
[2021-04-30 05:32] LABS: Anion Gap 13 mmol/L (10-20); BUN (Urea Nitrogen) 13 mg/dL (9.8-20.1); Calc. Creatinine Clearance 66 mL/min (70-130); Calcium 7.8 mg/dL (7.8-10.44); Carbon Dioxide 21 mmol/L (23-31); Chloride 113 mmol/L (98-107); Glucose 98 mg/dL (83-110); Potassium 3.6 mmol/L (3.5-5.1); Sodium 143 mmol/L (136-145)
[2021-04-30] MEDS ORDERED: Ketamine 50 MG/ML (10ML VIAL) ONE (08:52)
[2021-04-30] MEDS ORDERED: ePHEDrine Sulfate 50 MG/10 ML VIAL ONE (08:59)
[2021-04-30] MEDS ORDERED: PROPOFOL 200 MG/20 ML VIAL ONE (08:59)
[2021-04-30] MEDS: Pantoprazole 40 MG VIAL IVP SCH (11:27)
[2021-04-30] MEDS: Gabapentin 300 MG CAP PO SCH (20:04)
[2021-04-30] MEDS ORDERED: Atorvastatin Calcium 40 MG TAB PO SCH (21:00)
[2021-05-01 04:57] LABS: #Eosinphils 0.2 thou/uL (0.0-0.7); #Monocytes 0.5 thou/uL (0.11-0.59); #Neutrophils 3.9 thou/uL (1.40-6.50); %Basophils 0.3 % (0.0-1.0); %Eosinophils 2.3 % (0.0-10.0); %Lymphocytes 30.2 % (21.0-51.0); %Neutrophils 59.3 % (42.0-75.0); Mean Corpuscular HGB CONC 34.7 g/dL (32.0-36.0); Mean Corpuscular Hemoglobin 32.5 pg (27.0-31.0); Mean Corpuscular Volume 93.8 fL (78.0-98.0); Platelet Count 235 thou/uL (130-400); RBC Distribution Width 12.8 % (11.5-14.5); Red Blood Cell (RBC) Count 2.45 mill/uL (4.20-5.40); White Blood Cell (WBC) Count 6.6 thou/uL (4.8-10.8)
[2021-05-01 05:18] LABS: Anion Gap 8 mmol/L (10-20); BUN (Urea Nitrogen) 6 mg/dL (9.8-20.1); Calc. Creatinine Clearance 71 mL/min (70-130); Calcium 8.1 mg/dL (7.8-10.44); Carbon Dioxide 24 mmol/L (23-31); Chloride 113 mmol/L (98-107); Glucose 92 mg/dL (83-110); Potassium 3.1 mmol/L (3.5-5.1); Sodium 142 mmol/L (136-145)
[2021-05-01 07:14] VITALS: TEMP 98.3
[2021-05-01] MEDS: Gabapentin 300 MG CAP PO SCH (07:59)
[2021-05-01] MEDS ORDERED: Electrolyte Replacement Protocol 1 EACH FS PRN (08:30)
[2021-05-01] MEDS ORDERED: Potassium Chloride 20 MEQ TAB PO SCH ×2 (08:45→17:00)
[2021-05-01] MEDS ORDERED: Lisinopril 20 MG TAB PO SCH ×2 (09:00)
[2021-05-01] MEDS ORDERED: Hydrochlorothiazide 25 MG TAB PO SCH (09:00)
[2021-05-01 11:40] VITALS: BP 139/65
== END 2021-05-01 11:50 | disposition home or self-care (01) | DRG 378 ==
LOC: ERS 05:40 → SUATTDRO 05:40 → 2NO 06:50
PROVIDERS: ADMIT Internal Medicine; ATTEND Internal Medicine
PROC: 0DJ08ZZ Inspection of Upper Intestinal Tract, Via Natural or Artificial Opening Endoscopic (ICD-10-PCS; principal; 2021-04-30)
PROC: 0W3P8ZZ Control Bleeding in Gastrointestinal Tract, Via Natural or Artificial Opening Endoscopic (ICD-10-PCS; 2021-04-30)
DX: K57.31 Diverticulosis of large intestine without perforation or abscess with bleeding (principal); D62 Acute posthemorrhagic anemia; G62.9 Polyneuropathy, unspecified; E87.6 Hypokalemia; I10 Essential (primary) hypertension; E78.5 Hyperlipidemia, unspecified; Z90.12 Acquired absence of left breast and nipple; Z79.82 Long term (current) use of aspirin; Z79.899 Other long term (current) drug therapy; Z85.3 Personal history of malignant neoplasm of breast; Z90.49 Acquired absence of other specified parts of digestive tract
CPT/HCPCS: 36415; 80048; 80053; 83735; 85025; 85610; 85730; 86850; 86900; 86901; 93005; C9113; J2704

== ENCOUNTER 2022-12-12 12:38 | Outpatient (CLI) | payer MEDICARE | END 2022-12-12 12:39 | disposition home or self-care (01) | LOC: BICMAMMO 12:38 | PROVIDERS: ATTEND Nurse Practitioner Family | DX: Z12.31 Encounter for screening mammogram for malignant neoplasm of breast (principal); Z90.12 Acquired absence of left breast and nipple; Z91.89 Other specified personal risk factors, not elsewhere classified | CPT/HCPCS: 77063; 77067 ==

== ENCOUNTER 2023-07-30 10:53 | Outpatient (CLI) | payer MEDICARE | END 2023-07-30 10:54 | disposition home or self-care (01) | LOC: RAD-FRANK 10:53 | PROVIDERS: ATTEND Nurse Practitioner Family | DX: M54.50 Low back pain, unspecified (principal); M47.816 Spondylosis without myelopathy or radiculopathy, lumbar region; R93.7 Abnormal findings on diagnostic imaging of other parts of musculoskeletal system | CPT/HCPCS: 72100 ==

== ENCOUNTER 2023-12-12 13:25 | Outpatient (CLI) | payer MEDICARE | END 2023-12-12 13:26 | disposition home or self-care (01) | LOC: BICMAMMO 13:25 | PROVIDERS: ATTEND Nurse Practitioner Family | DX: N63.10 Unspecified lump in the right breast, unspecified quadrant (principal) | CPT/HCPCS: 76642; 77065; G0279 ==

== ENCOUNTER 2024-12-15 09:29 | Outpatient (CLI) | payer MEDICARE | END 2024-12-15 09:30 | disposition home or self-care (01) | LOC: BICMAMMO 09:29 | PROVIDERS: ATTEND Specialist | DX: N63.10 Unspecified lump in the right breast, unspecified quadrant (principal) | CPT/HCPCS: 76642; 77065; G0279 ==